=== PATIENT | male | born 1980 | race Caucasian/White ===

== ENCOUNTER 2018-03-09 11:31 | Outpatient (CLI) | payer OTHER, SELFPAY ==
[2018-03-09 12:43] LABS: Abs Immature Grans 0.02 k/cumm (0.0-0.09); Absolute Basophil Count 0.02 k/cumm (0.0-0.2); Absolute Eosinophil Count 0.11 k/cumm (0.0-0.7); Absolute Lymphocyte Count 1.68 k/cumm (1.2-3.4); Absolute Monocyte Count 0.34 k/cumm (0.11-0.7); Basophils % 0.3; Eosinophils % 1.7; HCT 44.2 % (40.0-50.0); HGB 15.9 g/dL (13.5-17.5); Immature Grans % 0.3; Lymphocytes % 26.4; Mean Corpuscular Hemoglobin 31.1 pg (27.0-33.0); Mean Corpuscular Volume 86.3 fL (80-95); Mean Platelet Volume 11.6 fL (8.0-11.0); Monocytes % 5.3; Platelet Count 171 x1000/uL (130-400); RBC 5.12 m/cumm (4.50-6.00); RBC Distribution Width 12.8 % (11.8-14.1); White Blood Cell Count 6.37 k/cumm (4.4-10.8)
[2018-03-09 12:53] LABS: Prothrombin Time 9.7 sec (9.3-11.0)
[2018-03-09 13:02] LABS: ALT 120 U/L (12-78); AST 46 U/L (15-37); Alkaline Phosphatase 75 U/L (46-116); Anion Gap 7.2 mmol/L (3-11); BUN 21 mg/dL (7-18); Bilirubin, Total 0.4 mg/dL (0.2-1.0); CO2 29.8 mmol/L (21.0-32.0); CREATININE 0.99 mg/dL (0.70-1.30); Calcium 9.2 mg/dL (8.5-10.1); Chloride 106 mmol/L (98-107); Glucose 82 mg/dL (70-100); Potassium 4.9 mmol/L (3.5-5.1); Sodium 143 mmol/L (136-145); Total Protein 7.1 g/dL (6.4-8.2)
[2018-03-10 10:49] LABS: HIV-1/2 Ag & Ab Screen Negative (NEGAT)
[2018-03-11 17:54] LABS: HCV Genotype 3 (Undetected)
== END 2018-03-09 11:51 ==
PROVIDERS: PCP Family Medicine; Visit Provider Nurse Practitioner Adult Health
DX: B18.2 Chronic viral hepatitis C (principal); Z11.4 Encounter for screening for human immunodeficiency virus [HIV]
CPT/HCPCS: 36415; 80053; 87389; 87535; 85025; 85610; 87521; 87522

== ENCOUNTER 2021-06-25 09:46 | Emergency (ER) | payer MEDICAID, SELFPAY ==
[2021-06-25] VITALS (16 sets, daily range): BP systolic 126–141; BP diastolic 72–99; PULSE 72–93; RESP 11–33; TEMP 36.5–37; O2SAT 97–98
--- NOTE | 2021-06-25 09:45 | RT.EKG_ITS ---
APPROVED REPORT Exam: Resting ECG Reason for Exam: OD Patient Location: E HR:86 bpm ECG Measurements Heart Rate 86 AXIS MO 145 P 27 QRSd 103 QRS -42 QT 419 T 22 QTc 502 Conclusion Sinus rhythm...normal P axis, V-rate 60- 99 Left anterior fascicular block...axis(240,-40), init forces inf Consider anterior infarct...Q >30mS in V2-V5 Prolonged QT interval...QTc >500mS. Sinus. No STEMI. I have reviewed and interpreted ECG and agree with software generated interpretation.
--- NOTE | 2021-06-25 09:56 | ED.GENADUL_ITS ---
Discharge Plan Disposition Patient Disposition: AGAINST MEDICAL ADVICE Condition: Stable Discharge Details Clinical Impression: Narcotic overdose, Hypoxia, Elevated troponin Primary Care Provider: Unknown,Unknown ED Provider: Lacey Davila Home Meds and New Rx's Prescriptions: Continued cephalexin [Keflex] 500 MG capsule 500 mg PO Q6H PRN Qty: 56 Cane Qty: 1 0RF ibuprofen 800 MG tablet 800 mg PO TID diclofenac sodium 75 MG tablet,delayed release (DR/EC) 75 mg PO BID Qty: 60 hydromorphone 2 MG tablet 2 mg PO Q6H PRN Qty: 15 Rx Instructions: this is a 10 day supply gabapentin 300 MG capsule 100 mg PO TID Qty: 90 Label Comments: states he never filled rx due to cost meloxicam 15 MG tablet 15 mg PO DAILY Qty: 30 3RF acetaminophen [Mapap Extra Strength] 500 MG tablet 1,000 mg PO TID Qty: 180 3RF clindamycin HCl 150 MG capsule 450 mg PO QID Qty: 120 0RF omeprazole 40 mg capsule,delayed release(DR/EC) Label Comments: TAKE 1 CAPSULE BY MOUTH EVERY DAY Discharge Instructions Instructions: Narcotic Safety (ED), Adult Overdose (ED) Additional Instructions: You are leaving the hospital AGAINST MEDICAL ADVICE. It has been suspected that you overdosed on an opiate. The effects of an opiate such as fentanyl are long- lasting. Narcan can wear off which can lead to a decrease in your breathing and possibly . Your blood work also showed evidence that may be indicative of damage to your heart muscle. It is recommended that you stay in the hospital for continued monitoring and repeat blood work. Drink plenty of fluids and get plenty of rest. Follow-up with your primary care doctor in 1 week. Return to the emergency department with any worsening or new concerning sy mptoms. Discharge Data Discharge Date/Time-TO BE ENTERED AT DEPARTURE: 06/25/21 11:51 Discharge Physician: Lacey Davila Medical Decision Making [id number] --- 41-year-old male with a history of polysubstance abuse presents as a suspected opiate overdose per EMS. Oxygen saturation was reported to be 25% on room air upon EMS arrival, after given to Narcan, patient awake and alert with oxygen saturation mid 90s on room air. Patient arrived to the ED awake and alert, oxygen saturation 97% on room air. Remainder vitals within normal limits. Patient denies any acute complaints other than cramp in his left thigh. Thigh appears normal to inspection without trauma, cellulitis or rash. EKG on arrival noted a rate of 86, sinus, left anterior fascicular block, questionable minimal ST elevation in V3 but no official criteria for STEMI. Considering presentation, will obtain screening labs, chest x-ray and continue telemetry monitoring. 1030 --- nursing unable to obtain IV. Laboratory staff obtained labs. 1130 --- patient is stating he would like to leave. Risks of and disability due to missed or incomplete diagnoses explained. Discussed with patient that his initial hypoxia and slightly abnormal EKG, would recommend continued monitoring. Patient is declining to stay. He demonstrates capacity to make decisions. While signing AMA paperwork, his labs resulted and noted a troponin of 93. Again discussed with patient and recommended that he stay for continued telemetry monitoring, at minimum delta troponin and repeat EKG and he is refusing. Patient placed on care management list to arrange for a follow-up appointment with a primary care doctor to establish care. Usual and customary return precautions given prior to leaving. Medical Records Medical records reviewed: Yes I reviewed the patient's medical records. Imaging Data Radiologic Study: Radiologist's impression: XR PORTABLE CHEST AP CLINICAL HISTORY: ? overdose, hypoxic, r/o acute disease. ? TECHNIQUE:? 2D digital imaging was performed. COMPARISON:? CR CHEST 2 VIEWS PA,LAT from 04/26/2015 FINDINGS: Single AP portable view. Heart size is upper normal.? The mediastinum is not widened. Lungs are clear.? No infiltrates nor obvious pleural effusions. IMPRESSION: No acute pulmonary findings on this single AP portable view of the chest. Lab Data Lab results reviewed: Yes I reviewed the patient's lab results. Labs: Laboratory Tests Range/Units 06/25/21 06/25/21 06/25/21 10:01 11:25 11:25 WBC (4.4-10.8) 10^3/uL 16.40 H RBC (4.36-5.78) 10^6/uL 5.54 Hgb (13.5-17.5) g/dL 16.1 Hct (40.0-50.0) % 48.4 MCV (80-95) fL 87 MCH (27.0-33.0) pg 29.1 MCHC (32.0-36.0) % 33.3 RDW (11.8-14.1) % 12.0 Plt Count (130-400) 10^3/uL 202 MPV (8.0-11.0) fL 11.8 H Immature Gran % 0.5 Neutrophils % 89.6 Lymphocytes % 4.6 Monocytes % 5.0 Eosinophils % 0.1 Basophils % 0.2 Nucleated RBC % (0.0-0.3) % 0.0 Absolute Neutrophils (1.2-6.7) 10^3/uL 14.69 H Absolute Lymphocytes (1.2-3.4) 10^3/uL 0.75 L Absolute Monocytes (0.1-0.8) 10^3/uL 0.82 H Absolute Eosinophils (0.0-0.7) 10^3/uL 0.02 Absolute Basophils (0.0-0.2) 10^3/uL 0.03 Sodium (136-145) mmol/L 135 L Potassium (3.5-5.1) mmol/L 4.5 Chloride (98-107) mmol/L 100 Carbon Dioxide (21.0-32.0) mmol/L 26.3 Anion Gap (3-11) mmol/L 8.7 BUN (7-18) mg/dL 27 H Creatinine (0.70-1.30) mg/dL 1.2 Estimated GFR/1.73 m2 (mL/min/1.73m2) >= 60.00 Glucose (74-106) mg/dL 81 Calcium (8.5-10.1) mg/dL 8.7 Magnesium (1.8-2.4) mg/dL 2.5 H Total Bilirubin (0.2-1.0) mg/dL 0.6 AST (15-37) U/L 27 ALT (16-63) U/L 27 Alkaline Phosphatase (46-116) U/L 93 Troponin I (<or=60) ng/L 93 H* Total Protein (6.4-8.2) g/dL 7.5 Albumin (3.4-5.0) g/dL 4.1 COVID-19 Source Nasopharynx SARS-CoV-2 (PCR) (Negative) Negative Influenza Type A (PCR) (Negative) Negative Influenza Type B (PCR) (Negative) Negative RSV (PCR) (Negative) Negative ECG Data Attestation: I personally reviewed and interpreted this ECG (s) as follows: Interpretation: Rate of 86, sinus, left anterior fascicular block. Questionable upsloping of ST segment in V3 but no STEMI. T wave inversion in lead III. No old EKG to compare. HPI General Mode of arrival: EMS . Date/Time Provider Initiated Documentation: 06/25/21 10:03 . Limitations to Documentation: no limitations . Information obtained by: patient . HPI Narrative: Patient is a 41-year-old male with history of polysubstance abuse presented as a possible overdose. EMS reported that patient's grandmother called EMS for patient noted to be unresponsive and writhing on the ground. Upon EMS arrival, patient was unresponsive and breathing but with a normal pulse. EMS reports his oxygen saturation was 25% on room air and increased to 94% on room air. Patient was given Narcan x2 per EMS with response. Patient states that he was incarcerated for 5 years but has been home for the past 3 months. He states he smoked crack last night and found to blue bags today which she scraped the inside of and snorted or smoked. He states he does not remember anything until EMS was standing over him at home. Patient denies any acute complaints. Related Data Home Medications Medication Instructions Recorded Confirmed acetaminophen 500 mg tablet (Mapap 1,000 mg PO TID ##180 09/25/15 10/08/16 Extra Strength) meloxicam 15 mg tablet 15 mg PO DAILY #30 tabs 09/25/15 10/08/16 cephalexin 500 mg capsule (Keflex) 500 mg PO Q6H PRN #56 tab-caps 10/03/15 diclofenac sodium 75 mg 75 mg PO BID #60 tab-caps 05/28/16 tablet,delayed release ibuprofen 800 mg tablet 800 mg PO TID 05/28/16 10/08/16 hydromorphone 2 mg tablet 2 mg PO Q6H PRN #15 tab-caps 08/04/16 gabapentin 300 mg capsule 100 mg PO TID #90 tabs 08/13/16 clindamycin HCl 150 mg capsule 450 mg PO QID #120 caps 10/08/16 omeprazole 40 mg capsule,delayed cap 06/25/21 release Previous Rx's Medication Instructions Recorded acetaminophen 500 mg tablet (Mapap 1,000 mg PO TID ##180 09/25/15 Extra Strength) meloxicam 15 mg tablet 15 mg PO DAILY #30 tabs 09/25/15 clindamycin HCl 150 mg capsule 450 mg PO QID #120 caps 10/08/16 Allergies Allergy/AdvReac Type Severity Reaction Status Date / Time No Known Allergies Allergy Unverified 10/08/16 17:41 General Stated Complaint: OD/Poison BARNEY: 2 Review of Systems All systems reviewed & are unremarkable except as noted in HPI and below Constitutional Constitutional: Denies chills, Denies excessive sweating, Denies fatigue, Denies fever(s), Denies weakness and Denies weight loss Eyes Eyes: Reports system reviewed and no additional complaints, except as documented and Denies blurry vision ENT Ears, Nose, Mouth, and Throat: Denies vertigo, Denies dizziness, Denies otalgia, Denies nasal congestion, Denies sore throat and Denies throat swelling Cardiovascular Cardiovascular: Denies chest pain, Denies syncope, Denies rapid heart rate and Denies dyspnea Respiratory Respiratory: Denies chest congestion, Denies cough, Denies pain on inspiration and Denies dyspnea Gastrointestinal Gastrointestinal: Denies abdominal pain, Denies diarrhea and Denies vomiting Genitourinary Genitourinary: Denies hematuria, Denies dysuria and Denies flank pain Musculoskeletal Musculoskeletal: Denies back pain and Denies joint swelling Integumentary/Breasts Skin/Breast: Denies lesions and Denies rash Neurologic Neurologic: Denies behavioral changes, Denies confusion, Denies vertigo, Denies dizziness, Denies syncope, Denies localized weakness and Denies weakness Psychiatric Psychiatric: Denies behavioral changes, Denies confusion and Denies depression Endocrine Endocrine: Denies excessive sweating and Denies fatigue Hematologic/Lymphatic Hematologic/Lymphatic: Denies easy bruising and Denies lymphadenopathy Allergic/Immunologic Allergic/Immunologic: Denies throat swelling PFSH All Active Problems (Updated 06/25/21 @ 11:49 by Lacey Davila DO) Narcotic overdose (Acute) Hypoxia (Acute) Elevated troponin (Acute) Septic arthritis of knee, left (Acute) Medical History (Updated 06/25/21 @ 11:49 by Lacey Davila DO) No significant past medical history Surgical History Debridement of left knee (03/22/15) Dr. Rivero Social History Smoking/Tobacco Use Status: Current every day Tobacco Type: cigarettes Smoking risk assessment performed?: Yes Alcohol Intake: former Drug use: Occasionally Substance use type: crack/cocaine and opiates Do you feel safe at home: Yes Do you feel safe in your relationship?: Yes Exam Const General: cooperative, no acute distress and disheveled Orientation: alert, awake and oriented x3 HENMT Head: normal to inspection Ears: hearing grossly normal bilaterally and external ears normal General nose exam: external nose normal Face and sinus: normal facial exam Mouth: oral mucosae normal Throat: posterior oropharynx normal Eyes General: appearance normal, both eyes and all related structures Eyelids: eyelids normal Pupils: PERRL EOM: EOM intact bilaterally Neck Neck: normal visual inspection Lymphatic: no lymphadenopathy noted Chest Chest: normal inspection of the chest Resp Effort & Inspection: normal respiratory effort and able to speak in complete sentences Auscultation: clear to auscultation bilaterally Cardio Rate: regular rate Rhythm: regular rhythm GI Inspection: normal to inspection Palpation: soft, not firm, no guarding, no hepatosplenomegaly, no masses and nontender Auscultation: normal bowel sounds Back/Spine/Pelvis Back: no CVA tenderness Skin General skin exam: no rashes or lesions noted Neuro General: patient alert and patient awake Cognition: normal cognition Speech: speech normal Gait: normal gait Motor: muscle tone normal throughout Sensory Exam: no sensory deficits noted Extrem General: normal to inspection, full ROM and capillary refill normal Psych Appearance: grossly normal Mental Status: mental status grossly normal Speech and Movement: speech and movement normal Affect: normal affect Thought Process: normal Course Vital Signs Vital signs: Vital Signs Temperature 97.7 F 06/25/21 09:47 Pulse 93 H 06/25/21 09:47 Respiratory Rate 20 06/25/21 09:47 Blood Pressure 141/99 H 06/25/21 09:47 Pulse Oximetry 97 06/25/21 09:47 Temperature 97.7 F 06/25/21 09:47 Temperature Source Oral 06/25/21 09:47 Pulse 93 H 06/25/21 09:47 Respiratory Rate 20 06/25/21 09:47 Blood Pressure 141/99 H 06/25/21 09:47 Blood Pressure Position Supine 06/25/21 09:47 Pulse Oximetry 97 06/25/21 09:47 Oxygen Delivery Method Room Air 06/25/21 09:47 Oxygen Flow Rate 0 06/25/21 09:47 Pain Level 1 06/25/21 09:47
[2021-06-25 10:58] LABS: COVID-19 PCR Negative (Negative); Influenza A PCR Negative (Negative); Influenza B PCR Negative (Negative); RSV PCR Negative (Negative)
[2021-06-25 11:05] LABS: Source Nasopharynx
--- NOTE | 2021-06-25 11:12 | DI.RAD_ITS ---
Exam(s) XR PORTABLE CHEST AP EXAM: XR PORTABLE CHEST AP CLINICAL HISTORY: overdose, hypoxic, r/o acute disease. TECHNIQUE: 2D digital imaging was performed. COMPARISON: CR CHEST 2 VIEWS PA,LAT from 04/26/2015 FINDINGS: Single AP portable view. Heart size is upper normal. The mediastinum is not widened. Lungs are clear. No infiltrates nor obvious pleural effusions. IMPRESSION: No acute pulmonary findings on this single AP portable view of the chest. DATA REPOSITORY: RADIATION DOSE DELIVERED: All CT scans at this facility use at least one of these dose optimization techniques: automated exposure control; mA and/or kV adjustment per patient size (includes targeted e xams where dose is matched to clinical indication); or iterative reconstruction.
[2021-06-25 11:42] LABS: Abs Immature Grans 0.08 10^3/uL (0.0-0.06); Absolute Basophil Count 0.03 10^3/uL (0.0-0.2); Absolute Eosinophil Count 0.02 10^3/uL (0.0-0.7); Absolute Lymphocyte Count 0.75 10^3/uL (1.2-3.4); Absolute Monocyte Count 0.82 10^3/uL (0.1-0.8); Absolute Neutrophil Count 14.69 10^3/uL (1.2-6.7); Basophils % 0.2; Eosinophils % 0.1; HCT 48.4 % (40.0-50.0); HGB 16.1 g/dL (13.5-17.5); Immature Grans % 0.5; Lymphocytes % 4.6; MCH 29.1 pg (27.0-33.0); MCHC 33.3 % (32.0-36.0); MCV 87 fL (80-95); MPV 11.8 fL (8.0-11.0); Neutrophils % 89.6; Platelet Count 202 10^3/uL (130-400); RBC 5.54 10^6/uL (4.36-5.78); RDW-SD 38.5 fL
[2021-06-25 11:46] LABS: ALT 27 U/L (16-63); AST 27 U/L (15-37); Albumin 4.1 g/dL (3.4-5.0); Alkaline Phosphatase 93 U/L (46-116); Anion Gap 8.7 mmol/L (3-11); BUN 27 mg/dL (7-18); Bilirubin, Total 0.6 mg/dL (0.2-1.0); CO2 26.3 mmol/L (21.0-32.0); CREATININE 1.2 mg/dL (0.70-1.30); Calcium 8.7 mg/dL (8.5-10.1); Chloride 100 mmol/L (98-107); Glucose 81 mg/dL (74-106); Magnesium 2.5 mg/dL (1.8-2.4); Potassium 4.5 mmol/L (3.5-5.1); Sodium 135 mmol/L (136-145); Total Protein 7.5 g/dL (6.4-8.2)
[2021-06-25 11:47] LABS: Troponin I 93 ng/L (<or=60)
--- NOTE | 2021-06-25 11:55 | NUR.NOTE ---
Nursing Note: Unable to obtain iv access on pt, lab [facility] bloodwork and sent. Dr. Davila aware. Pt requesting to leave AMA - Dr. Davila in room to speak with pt, he verbalizes his understanding of the risks of leaving. AMA form signed. Pt escorted out to waiting room.
--- NOTE | 2021-06-25 11:56 | NUR.NOTE ---
Nursing Note: Referral given to Care Management needs PCP, OD, elevated troponin, establish care, within 1 week. Blanca Cadena
--- NOTE | 2021-06-26 11:45 | CMACTNOTE_ITS ---
- If Service Date Differs Date of service: 06/26/21 Time of Service: 11:45 Care Management Activity Note Sina is seen in the ED for narcotic overdose, hypoxia and elevated troponin. At the request of ED provider, JOVITA coordinates a referral to IMANI Bergman, of [facility], on-call provider, to assist Sina in obtaining a follow up appointment and in establishing care with a PCP. He has Medicaid for iinsurance.
== END 2021-06-25 11:51 | disposition left against medical advice (07) ==
LOC: ER 12:03
PROVIDERS: Emergency Provider Physician Assistant
DX: T40.601A Poisoning by unspecified narcotics, accidental (unintentional), initial encounter (principal); R40.4 Transient alteration of awareness; R09.02 Hypoxemia; R79.89 Other specified abnormal findings of blood chemistry
CPT/HCPCS: 36415; 80053; 87637; 93005; 99284; 71045; 83735; 84484; 85025; 93010

== ENCOUNTER 2021-11-24 19:51 | Emergency (ER) | payer MEDICAID, SELFPAY ==
[2021-11-24 19:58] VITALS: BP 156/97; PULSE 100; RESP 16; TEMP 35.7; O2SAT 99
--- OUTSIDE RECORDS SUMMARY | 2021-11-24 20:00 | XMS_ITS ---
:1980 External Reference #:[id number] Author Care Team Providers Name Role Phone Michele, Yu Primary Care Provider Unavailable Allergies Code Code System Name Reaction Severity Status Onset NKDA ? Medications Name Status Start Date Stop Date ? ? buprenorphine 8 mg-naloxone 2 mg sublingual tablet Active ? Not available PLACE TWO TABLETS UNDER THE TONGUE EVERY DAY buprenorphine HCl 8 mg sublingual tablet Completed ? 02/19/[address]21 Place 2 tablets every day by sublingual route for 7 days. omeprazole 40 mg capsule,delayed release Active ? Not available TAKE 1 CAPSULE BY MOUTH EVERY DAY Suboxone 8 mg-2 mg sublingual film Active ? Not available PLACE ONE FILM UNDER THE TONGUE EVERY DAY FOR 7 DAYS Problems Name Status Onset Date Source ? Opioid Dependence Active 02/12/2021 ? Procedures Date Name Performed by ? ? Operative Procedure on Knee Information not available Results Lab Results Date Name Specimen Result Interpretation Description Value Range Status Address ? 04/08/2021 Drug UR ? Amphetamines negative NG/mL 1,000 Final [facility] Screen, NG/mL Health: Urine [address], [place] ? ? UR ? Benzodiazapines negative NG/mL 200 Final [facility] NG/mL Health: [address], [place] ? ? UR ? Buprenorphine positive NG/mL 5 F inal [facility] NG/mL Health: [address], [place] ? ? UR ? Cocaine negative NG/mL 150 Final [facility] Metabolite NG/mL Health : [address], [place] ? ? UR ? Opiates negative NG/mL 300 Final [facility] NG/mL Health: [address], [place] ? ? UR ? Oxycodone negative NG/mL 300 Final [facility] NG/mL Health: [address], [place] ? ? UR ? Fentanyl negative NG/mL 2 Final [facility] NG/mL Health: [address], [place] ? ? UR ? Ethyl Alcohol negative mg/dL 10 F inal [facility] mg/dL Health: [address], [place] ? ? UR ? Methadone negative NG/mL 300 Final [facility] Metabolite NG/mL Health : [address] ? ? UR ? Cannabinoids negative NG/mL 50 Fi nal [facility] (THC) NG/mL Health: [address] ? ? UR ? Urine Creatinine 58.8 mg/dL >20 Fi nal [facility] mg/dL Health: [address] ? ? UR ? Urine pH 8.00 4.5-9. Final [facility] 0 Health: [address] ? ? UR ? Specific [place] 1.009 1.003- Final [facility] 1.035 Health: [address] 03/18/2021 Drug UR ? Amphetamines negative NG/mL 1,000 Final [facility] Screen, NG/mL Health: Urine [address] ? ? UR ? Benzodiazapines negative NG/mL 200 Final [facility] NG/mL Health: [address] ? ? UR ? Buprenorphine positive NG/mL 5 F inal [facility] NG/mL Health: [address] ? ? UR ? Cocaine negative NG/mL 150 Final [facility] Metabolite NG/mL Health : [address] ? ? UR ? Opiates negative NG/mL 300 Final [facility] NG/mL Health: [address] ? ? UR ? Oxycodone negative NG/mL 300 Final [facility] NG/mL Health: [address] ? ? UR ? Fentanyl negative NG/mL 2 Final [facility] NG/mL Health: [address] ? ? UR ABNORMAL Ethyl Alcohol positive mg/dL 10 Final [facility] mg/dL Health: [address], [place] ? ? UR ? Methadone negative NG/mL 300 Final [facility] Metabolite NG/mL Health : [address] ? ? UR ? Urine Creatinine 68.3 mg/dL >20 Fi nal [facility] mg/dL Health: [address] ? ? UR ? Urine pH 5.40 4.5-9. Final [facility] 0 Health: [address] ? ? UR ? Specific [place] 1.016 1.003- Final [facility] 1.035 Health: [address], [place] 03/18/2021 Drug UR High Buprenorphine olr(>2000) 10 F inal [facility] Confirma NG/mL NG/mL Health: tion, [address], [place] ? ? UR ? Norbuprenorphine 13.8 NG/mL 10 Fi nal [facility] NG/mL Health: [address], [place] ? ? UR ? Legend abbreviations ? Final [facility] Health: [address], [place] ? ? UR ? Billing Only billing only ? Ritu l [facility] ([id number]) Health: [address] [place] 03/11/2021 Drug UR ? Amphetamines negative NG/mL 1,000 Final [facility] Screen, NG/mL Health: Urine [address], [place] ? ? UR ? Benzodiazapines negative NG/mL 200 Final [facility] NG/mL Health: [address], [place] ? ? UR ? Buprenorphine positive NG/mL 5 F inal [facility] NG/mL Health: [address], [place] ? ? UR ? Cocaine negative NG/mL 150 Final [facility] Metabolite NG/mL Health : [address], [place] ? ? UR ? Opiates negative NG/mL 300 Final [facility] NG/mL Health: [address], [place] ? ? UR ? Oxycodone negative NG/mL 300 Final [facility] NG/mL Health: [address], [place] ? ? UR ? Fentanyl negative NG/mL 2 Final [facility] NG/mL Health: [address], [place] ? ? UR ? Ethyl Alcohol negative mg/dL 10 F inal [facility] mg/dL Health: [address], [place] ? ? UR ? Methadone negative NG/mL 300 Final [facility] Metabolite NG/mL Health : [address], [place] ? ? UR ? Urine Creatinine 141.8 mg/dL >20 F inal [facility] mg/dL Health: [address], [place] ? ? UR ? Urine pH 5.80 4.5-9. Final [facility] 0 Health: [address], [place] ? ? UR ? Specific [place] 1.012 1.003- Final [facility] 1.035 Health: [address] 02/18/2021 Drug UR ABNORMAL Amphetamines positive NG/mL 1,0 00 Final [facility] Screen, NG/mL Health: Urine [address] ? ? UR ? Benzodiazapines negative NG/mL 200 Final [facility] NG/mL Health: [address], [place] ? ? UR ? Buprenorphine positive NG/mL 5 F inal [facility] NG/mL Health: [address], [place] ? ? UR ABNORMAL Cocaine positive NG/mL 150 Final [facility] Metabolite NG/mL Health : [address], [place] ? ? UR ? Opiates negative NG/mL 300 Final [facility] NG/mL Health: [address], [place] ? ? UR ? Oxycodone negative NG/mL 300 Final [facility] NG/mL Health: [address] ? ? UR ABNORMAL Fentanyl positive NG/mL 2 Ritu l [facility] NG/mL Health: [address], [place] ? ? UR ? Ethyl Alcohol negative mg/dL 10 F inal [facility] mg/dL Health: [address], [place] ? ? UR ? Methadone negative NG/mL 300 Final [facility] Metabolite NG/mL Health : [address], [place] ? ? UR ? Urine Creatinine 200.6 mg/dL >20 F inal [facility] mg/dL Health: [address] ? ? UR ? Urine pH 6.40 4.5-9. Final [facility] 0 Health: [address], [place] ? ? UR ? Specific [place] 1.016 1.003- Final [facility] 1.035 Health: [address] 02/18/2021 Drug UR ? Buprenorphine 66.7 NG/mL 20 F inal [facility] Confirma NG/mL Health: tion, 12 [address] ? ? UR ? Norbuprenorphine 133.4 NG/mL 50 F inal [facility] NG/mL Health: [address], [place] ? ? UR ? 6-Acetylmorphine negative NG/mL 10 Final [facility] NG/mL Health: [address], [place] ? ? UR ? Codeine negative NG/mL 50 Final [facility] NG/mL Health: [address], [place] ? ? UR ? Hydrocodone negative NG/mL 50 Fin al [facility] NG/mL Health: [address], [place] ? ? UR ? Hydromorphone negative NG/mL 50 F inal [facility] NG/mL Health: [address], [place] ? ? UR ? Morphine negative NG/mL 50 Final [facility] NG/mL Health: [address], [place] ? ? UR ? Norhydrocodone negative NG/mL 100 Final [facility] NG/mL Health: [address], [place] ? ? UR ? Noroxycodone negative NG/mL 50 Fi nal [facility] NG/mL Health: [address], [place] ? ? UR ? Oxycodone negative NG/mL 25 Final [facility] NG/mL Health: [address], [place] ? ? UR ? Oxymorphone negative NG/mL 100 Fin al [facility] NG/mL Health: [address], [place] ? ? UR ? Fentanyl negative NG/mL 20 Final [facility] NG/mL Health: [address], [place] ? ? UR High Norfentanyl 147.8 NG/mL 20 Final [facility] NG/mL Health: [address], [place] ? ? UR High Benzoylecgonine olr(>2000) 100 Fin al [facility] NG/mL NG/mL Health: [address], [place] ? ? UR ? Amphetamine negative NG/mL 250 Fin al [facility] NG/mL Health: [address], [place] ? ? UR High Methamphetamine 1099.8 NG/mL 250 F inal [facility] NG/mL Health: [address], [place] ? ? UR ? Mda negative NG/mL 250 Final [place] NG/mL Health: [address], [place] ? ? UR ? Alpha-hydroxyalp negative NG/mL 25 Final [facility] razolam NG/mL Health: [address], [place] ? ? UR ? 7-Aminoclonazepa negative NG/mL 40 Final [facility] m NG/mL Health: [address], [place] ? ? UR ? Diazepam negative NG/mL 50 Final [facility] NG/mL Health: [address], [place] ? ? UR ? Lorazepam negative NG/mL 50 Final [facility] NG/mL Health: [address], [place] ? ? UR ? Nordiazepam negative NG/mL 50 Fin al [facility] NG/mL Health: [address], [place] ? ? UR ? Temazepam negative NG/mL 50 Final [facility] NG/mL Health: [address], [place] ? ? UR ? Methadone negative NG/mL 250 Final [facility] NG/mL Health: [address], [place] ? ? UR ? Eddp negative NG/mL 100 Final [place] NG/mL Health: [address], [place] ? ? UR ? Normeperidine negative NG/mL 100 F inal [facility] NG/mL Health: [address], [place] ? ? UR ? Tramadol negative NG/mL 100 Final [facility] NG/mL Health: [address], [place] ? ? UR ? Legend abbreviations ? Final [place] Health: [address] 02/11/2021 Drug UR ? Amphetamines negative NG/mL 1,000 Final [facility] Screen, NG/mL Health: Urine [address], [place] ? ? UR ? Benzodiazapines negative NG/mL 200 Final [facility] NG/mL Health: [address], [place] ? ? UR ? Buprenorphine positive NG/mL 5 F inal [facility] NG/mL Health: [address], [place] ? ? UR ? Cocaine negative NG/mL 150 Final [facility] Metabolite NG/mL Health : [address], [place] ? ? UR ? Opiates negative NG/mL 300 Final [facility] NG/mL Health: [address], [place] ? ? UR ? Oxycodone negative NG/mL 300 Final [facility] NG/mL Health: [address], [place] ? ? UR ? Fentanyl negative NG/mL 2 Final [facility] NG/mL Health: [address], [place] ? ? UR ? Ethyl Alcohol negative mg/dL 10 F inal [facility] mg/dL Health: [address] ? ? UR ? Methadone negative NG/mL 300 Final [facility] Metabolite NG/mL Health : [address] ? ? UR ? Urine Creatinine 40.8 mg/dL >20 Fi nal [facility] mg/dL Health: [address] ? ? UR ? Urine pH 5.10 4.5-9. Final [facility] 0 Health: [address] ? ? UR ? Specific [place] 1.010 1.003- Final [facility] 1.035 Health: [address] Past Encounters 04/08/2021 Opioid Dependence Yu Michele, FOCUS PULLER: [address] [place] [phone], Ph. 03/18/2021 Opioid Dependence Yu Michele, FOCUS PULLER: [address] [place] [phone], Ph. 03/11/2021 Opioid Dependence Yu Michele, FOCUS PULLER: [address] [place] [phone], Ph. 02/18/2021 Opioid Dependence Yu Michele, FOCUS PULLER: [address] [place] [phone], Ph. 02/12/2021 Opioid Dependence Yu Michele, FOCUS PULLER: [address] [place] [address] [address] [phone], Ph. Social History None recorded. Vaccine List None recorded. Plan of Care Patient Instructions As part of your individualized treatmen t plan and program requirement, you will need to bring your correct prescription bottle and all used and unused medication and counseling verification to each appointment; > Agree to participate in counseling and bring counseling verification to each appointment; > Agree to present for random visits; > Agree to not falsify your urine specim ens. As part of your individualized treatmen t plan and program requirement, you will need to bring your correct prescription bottle and all used and unused medication and counseling verification to each appointment; > Agree to participate in counseling and bring counseling verification to each appointment; > Agree to present for random visits; > Agree to not falsify your urine specim ens. Abstain from opiates for 24 hours unles s directed by provider; > If already taking buprenorphine, do no t take a dose the day of the induction until you are in the office with your provider; > Comfort medications were recommended. If accepted, please take as prescribed to support your ability to abstain from opiates until your buprenorphine induction; > Keep your buprenorphine RX package ken sed until you are seen by your provider for induction unless otherwise directed; If you have problems abstaining from op iates, please call the office. Reminders Provider Appointments None recorded. ? ? Lab None recorded. ? ? Referral None recorded. ? ? Procedures None recorded. ? ? Surgeries None recorded. ? ? Imaging None recorded. ? ? Vitals 04/08/2021 11:00AM MAT - Twice Weekly 15 Weight 201 lbs 02/18/2021 01:30PM MAT - Weekly 15 Blood Pressure 124/67 mm[Hg]
--- OUTSIDE RECORDS SUMMARY | 2021-11-24 20:00 | XMS_ITS | Encounter Summary ---
:1980 [place] [address] Care Team Providers Name Role Phone Jesus Grover MD, Mark Primary Care Provider Encounter Details Date Type Department Care Team Description 03/26/2015 Hospital Encounter [facility] [place] [facility] [place] [facility] [place] [address] ORTHOPAEDIC SURGERY [phone] [place], [place] [address] (Wo rk) Social History Tobacco Use Types Packs/Day Years Used Date Never Assessed Sex Assigned at Date Recorded Not on file documented as of this encounter Plan of Treatment Not on filedocumented as of this encounter Procedures Procedure Name Priority Date/Time Associated Diagnosis Comme nts FILM LIBRARY Routine 03/26/2015 12:00 AM Pain Results for this STORAGE ONLY MR EST procedure ar e in [facility] the results section. documented in this encounter Results Film Library- Storage Only MR Knee (03/26/2015 12:00 AM EST) Specimen (Source) Anatomical Location Collection Method / Collectio n Time Received Time / Laterality Volume Narrative ÁLVARO - 08/19/2016 12:42 AM EDT This exam is for storage only and is aut o-finalizing. Chaz Myers MD IMG FILM LIBRARY ORDERABLES Performing Organization Address City/State/ZIP Code Phon e Number [place], [place] documented in this encounter Visit Diagnoses Diagnosis Pain Generalized pain documented in this encounter Care Teams Family Member Caretaker Relationship Specialty Start Date End Date Lex Lee MD PCP - General 01/01/[address] [place] [address] [place] [address] documented as of this encounter
--- OUTSIDE RECORDS SUMMARY | 2021-11-24 20:00 | XMS_ITS | Encounter Summary ---
:1980 [place] [address] Care Team Providers Name Role Phone Jesus Grover MD, Mark Primary Care Provider Encounter Details Date Type Department Care Team Description 07/18/2015 Hospital Encounter Radiology Library at [place], Pain [facility] [place] [facility] [place] [address] ORTHOPAEDIC SURGERY [phone] [place], [place] [address] (Wo rk) Social History Tobacco Use Types Packs/Day Years Used Date Never Assessed Sex Assigned at Date Recorded Not on file documented as of this encounter Plan of Treatment Not on filedocumented as of this encounter Procedures Procedure Name Priority Date/Time Associated Diagnosis Comme [facility] FILM LIBRARY Routine 07/18/2015 12:00 AM Pain Results for this STORAGE ONLY DX EDT procedure ar e in KNEE the results section. documented in this encounter Results Film Library- Storage Only DX Knee (07/18/2015 12:00 AM EDT) Specimen (Source) Anatomical Location Collection Method / Collectio n Time Received Time / Laterality Volume Narrative LINDA REA - 08/19/2016 12:39 AM EDT This exam is for storage only and is aut o-finalizing. Chaz Myers MD IMG FILM LIBRARY ORDERABLES Performing Organization Address City/State/ZIP Code Phon e Number RAD [place], [place] documented in this encounter Visit Diagnoses Diagnosis Pain Generalized pain documented in this encounter Care Teams Ground Surveillance Systems Operator Relationship Specialty Start Date End Date Lex Lee MD PCP - General 01/01/[address] [place] [address] [place] [address] documented as of this encounter
--- OUTSIDE RECORDS SUMMARY | 2021-11-24 20:00 | XMS_ITS | Encounter Summary ---
:1980 [place] [address] Care Team Providers Name Role Phone Jesus Grover MD, Mark Primary Care Provider Encounter Details Date Type Department Care Team Description 02/26/2015 Hospital Encounter [facility] [place], [place] [facility] [place] [address] ORTHOPAEDIC SURGERY [phone] [place], [place] [address] (Wo rk) Social History Tobacco Use Types Packs/Day Years Used Date Never Assessed Sex Assigned at Date Recorded Not on file documented as of this encounter Plan of Treatment Not on filedocumented as of this encounter Procedures Procedure Name Priority Date/Time Associated Diagnosis Comme nts FILM LIBRARY Routine 02/26/2015 12:00 AM Pain Results for this STORAGE ONLY DX EST procedure ar e in KNEE the results section. documented in this encounter Results Film Library- Storage Only DX Knee (02/26/2015 12:00 AM EST) Specimen (Source) Anatomical Location Collection Method / Collectio n Time Received Time / Laterality Volume Narrative ÁLVARO - 08/19/2016 12:43 AM EDT This exam is for storage only and is aut o-finalizing. Chaz Myers MD IMG FILM LIBRARY ORDERABLES Performing Organization Address City/State/ZIP Code Phon e Number [place], [place] documented in this encounter Visit Diagnoses Diagnosis Pain Generalized pain documented in this encounter Care Teams Supervisor Boiler Repair Relationship Specialty Start Date End Date Lex Lee MD PCP - General 01/01/[address] [place] [address] [place] [address] documented as of this encounter
--- OUTSIDE RECORDS SUMMARY | 2021-11-24 20:00 | XMS_ITS | Clinical Summary ---
:1980 Author Organization [facility] [place] [address] Care Team Providers Name Role Phone Jesus Grover MD, Mark Primary Care Provider Social History Tobacco Use Types Packs/Day Years Used Date Never Assessed Sex Assigned at Date Recorded Not on file Plan of Treatment Health Maintenance Due Date Last Done Comments Covid-19 Vaccine (#1) 1980 HIV screen 06/07/1999 Hepatitis C Screening 06/07/1999 Lipid Screening 06/07/1999 Tdap adult 2000 Tetanus vaccine 2000 Influenza (Flu) vaccine ( - Influenza standard 10/10/2021 series) Insurance Payer Benefit Plan / Subscriber ID Effective Dates Phone Addre ss Type Group CIGNA CIGNA OPEN [id number] 2013-Present [phone] ROBERT X [id number] ACCESS PLUS [place], [place] [id number] Care Teams Template Checker Relationship Specialty Start Date End Date Lex Lee MD PCP - General 01/01/10 [place], [place] [phone]
--- NOTE | 2021-11-24 20:03 | W.ED.GENAD ---
Discharge Plan Disposition Patient Disposition: HOME Condition: Good Discharge Details Clinical Impression: Dental abscess Primary Care Provider: None,None ED Provider: Rigoberto Tee Home Meds and New Rx's Prescriptions: New clindamycin HCl [Cleocin HCl] 150 mg capsule 450 mg PO TID 9 Days Qty: 81 0RF No Action cephalexin [Keflex] 500 MG capsule 500 mg PO Q6H PRN Qty: 56 Cane Qty: 1 0RF ibuprofen 800 MG tablet 800 mg PO TID diclofenac sodium 75 MG tablet,delayed release (DR/EC) 75 mg PO BID Qty: 60 hydromorphone 2 MG tablet 2 mg PO Q6H PRN Qty: 15 Rx Instructions: this is a 10 day supply gabapentin 300 MG capsule 100 mg PO TID Qty: 90 Label Comments: states he never filled rx due to cost meloxicam 15 MG tablet 15 mg PO DAILY Qty: 30 3RF acetaminophen [Mapap Extra Strength] 500 MG tablet 1,000 mg PO TID Qty: 180 3RF clindamycin HCl 150 MG capsule 450 mg PO QID Qty: 120 0RF omeprazole 40 mg capsule,delayed release(DR/EC) Label Comments: TAKE 1 CAPSULE BY MOUTH EVERY DAY Discharge Instructions Instructions: Dental Abscess (ED) Additional Instructions: At this time you have evidence of a dental abscess. As we discussed together it is important to get this drained. You have decided to hold off on the drainage, however it is vitally important that if your symptoms continue or worsen that you need to return immediately to perform the drainage attempt that we discussed. Please take 800 mg of ibuprofen every 6 hours and 1000 mg of Tylenol every 6 hours to help with the inflammation and pain. These are the maximum doses. Please take the antibiotic as directed to help with the infection in your tooth. It has been sent to your pharmacy on file. Take 3 tablets every 8 hours. please use the dental list that we have provided to contact the dentist for prompt follow-up and evaluation for tooth removal. If you notice any worsening of your symptoms, or any new symptoms such as difficulty swallowing, difficulty breathing, vomiting, diarrhea, fever, chills, shortness of breath, chest pain, numbness, weakness, or fainting , please return immediately to the emergency department for reevaluation. Please follow up with your primary care provider as soon as possible for reassessment and reevaluation. As always, it was a pleasure participating in your medical care today. Medical Decision Making 41-year-old male presents today for dental pain and abscess. Patient states that for the last 2 to 3 days he has had swelling and some pus that was draining from his right lower chin and to the area. Pain is made worse with palpation. He denies fever chills or difficulty swallowing. He has not contacted a dentist yet. No other complaints at this time. Exam demonstrates an area of swelling at the periapical space by the right lower canine area. This extends into the chin with swelling and what appears to be an area of mild drainage. Suspect a communicating abscess. No evidence of Ludewig's angina or swelling around the throat or neck. No signs of airway compromise whatsoever. Due to the nature and size of the suspected dental abscess, I highly recommended to the patient that a dental block and drainage be performed. Patient refused. I discussed that this can significantly worsen quickly, and I also discussed the risks of systemic infection, and Ludewig's angina as a potential downstream component, including worsening illness and and lifelong disability. Patient understands this but again refuses dental block and drainage. Patient is requesting antibiotics, and states that if is not better in 1 to 2 days and he will come back in to be rechecked and have the procedure. I made clear to the patient that if it worsens at all he should return immediately for reassessment. Patient will be given clindamycin for treatment. Recommend Tylenol or Motrin. Dental sheet has been given and recommend prompt follow-up with dentist. Discussed red flags which to return. I have extensively reviewed the treatment plan and discharge instructions with the patient. I have addressed all patient concerns at this time. The patient was made aware of what symptoms to monitor for that would warrant a return to the emergency department. Discussed the plan with the patient, they demonstrate verbal understanding and agreement with our assessment and plan at this time. The documentation in this chart was dictated using Pins dictation software. Please excuse any dictation errors. HPI General Date/Time Provider Initiated Documentation: 11/24/21 19:54. HPI Narrative: 41-year-old male presents today for dental pain and abscess. Patient states that for the last 2 to 3 days he has had swelling and some pus that was draining from his right lower chin and to the area. Pain is made worse with palpation. He denies fever chills or difficulty swallowing. He has not contacted a dentist yet. No other complaints at this time. Related Data Home Medications Medication Instructions Recorded Confirmed acetaminophen 500 mg tablet (Mapap 1,000 mg PO TID ##180 09/25/15 10/08/16 Extra Strength) cephalexin 500 mg capsule (Keflex) 500 mg PO Q6H PRN #56 tab-caps 10/03/15 ibuprofen 800 mg tablet 800 mg PO TID 05/28/16 11/24/21 clindamycin HCl 150 mg capsule 450 mg PO QID #120 caps 10/08/16 11/24/21 omeprazole 40 mg capsule,delayed 40 mg PO DAILY 06/25/21 11/24/21 release clindamycin HCl 150 mg capsule 450 mg PO TID 9 days #81 caps 11/24/21 (Cleocin HCl) Previous Rx's Medication Instructions Recorded acetaminophen 500 mg tablet (Mapap 1,000 mg PO TID ##180 09/25/15 Extra Strength) clindamycin HCl 150 mg capsule 450 mg PO QID #120 caps 10/08/16 clindamycin HCl 150 mg capsule 450 mg PO TID 9 days #81 caps 11/24/21 (Cleocin HCl) Allergies Allergy/AdvReac Type Severity Reaction Status Date / Time No Known Allergies Allergy Unverified 11/24/21 20:04 General BARNEY: 2 Review of Systems All systems reviewed & are unremarkable except as noted in HPI and below PFSH All Active Problems Dental abscess (Acute) Septic arthritis of knee, left (Acute) Medical History No significant past medical history Surgical History Debridement of left knee (03/22/15) Dr. Rivero Social History Smoking/Tobacco Use Status: Current every day Tobacco Type: cigarettes Smoking risk assessment performed?: Yes Alcohol Intake: former Drug use: Occasionally Substance use type: crack/cocaine and opiates Do you feel safe at home: Yes Do you feel safe in your relationship?: Yes Exam Narrative Exam Narrative: 1.Const: Well-nourished, Well-developed, appearing stated age 2.Eyes: PERRL, no conjunctival injection, and symmetrical lids. 3.ENT: Atraumatic external nose and ears. Moist MM. Neck: Symmetric, trachea midline, No thyromegaly. Patient demonstrates notable dental carry around the area of his right lower incisor. There appears to be swelling in the periapical space below that extends into the chin with firmness but no fluctuance. There appears to be an area of mild drainage externally by the chin which is likely communicating from where the dental component is. No evidence of swelling in the neck to suggest Ludewig's angina. No evidence of airway compromise. 4.CVS: +S1/S2, No murmurs or gallops. Peripheral pulses 2+ and equal in all extremities. Brisk capillary refill in all extremities. 5.RESP: Unlabored respiratory effort. Clear to auscultation bilaterally. No wheezes rales or rhonchi 6.GI: Soft, Nontender/Nondistended, No hepatosplenomegaly. No guarding or rebound. 7.MSK: Normocephalic/Atraumatic, Extremities w/o deformity or ttp No cyanosis or clubbing, Normal movement of all extremities 8.Skin: Warm, Dry. No rashes or lesions. 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 Sensation grossly intact, no focal neurologic deficits. 10.Psych: (AAO) x3. Appropriate mood and affect
[2021-11-24] MEDS: Clindamycin 150 MG CAP, 12 CAPS/BTL 450 MG PO (20:10)
== END 2021-11-24 20:10 | disposition home or self-care (01) ==
PROVIDERS: Emergency Provider Student in an Organized Health Care Education/Training Program
DX: K04.7 Periapical abscess without sinus (principal); K02.9 Dental caries, unspecified
CPT/HCPCS: 99283; 99284

== ENCOUNTER 2022-01-25 23:50 | Emergency (ER) | payer MEDICAID, SELFPAY ==
[2022-01-26 00:51] VITALS: BP 134/94; PULSE 74; RESP 16; TEMP 36.8; O2SAT 94
--- NOTE | 2022-01-26 00:57 | ED.GENADUL_ITS ---
Discharge Plan Disposition Patient Disposition: Home Condition: Improving Discharge Details Clinical Impression: Odontalgia Primary Care Provider: None,None ED Provider: Provider,Temporary Home Meds and New Rx's Prescriptions: Continued Cane Qty: 1 0RF ibuprofen 800 MG tablet 800 mg PO TID acetaminophen [Mapap Extra Strength] 500 MG tablet 1,000 mg PO TID Qty: 180 3RF omeprazole 40 mg capsule,delayed release(DR/EC) 40 mg PO DAILY Label Comments: TAKE 1 CAPSULE BY MOUTH EVERY DAY clindamycin HCl 150 MG capsule 450 mg PO QID 10 Days Qty: 120 0RF Discontinued cephalexin [Keflex] 500 MG capsule 500 mg PO Q6H PRN Qty: 56 Discharge Instructions Instructions: Toothache (ED) Additional Instructions: Salt water gargles to assist in promoting drainage. May apply warm compress to area. Continue Tylenol and ibuprofen as needed for pain. Take clindamycin as prescribed. Return for any acute concern. Medical Decision Making 41-year-old male with poor dentition, history of recurrent abscesses presents with left mandibular swelling over 2 days time. He has evidence of developing abscess. Not amenable to drainage. Placed on clindamycin. He is stable for discharge to home. HPI General Mode of arrival: ambulatory . Date/Time Provider Initiated Documentation: 01/26/22 00:48 . Limitations to Documentation: no limitations . Information obtained by: patient . History of Present Illness 41 year old M presents to the emergency department with the chief complaint of Left lower jaw swelling, described as mild, moderate and similar to prior episodes, Quality is described as dull and constant, and is localized to the face, mouth and le ft. Patient reports no radiation. Patient started experiencing this day(s) and it has been constant. No relieving factors improve symptom(s), No exacerbating factors reported . Patient notes denies chest pain, cough and fever/chills. Patient did receive the following treatments prior to arrival, other (Tylenol) Related Data Home Medications Medication Instructions Recorded Confirmed acetaminophen 500 mg tablet (Mapap 1,000 mg PO TID ##180 09/25/15 10/08/16 Extra Strength) ibuprofen 800 mg tablet 800 mg PO TID 05/28/16 11/24/21 omeprazole 40 mg capsule,delayed 40 mg PO DAILY 06/25/21 11/24/21 release clindamycin HCl 150 mg capsule 450 mg PO QID 10 days #120 caps 01/26/22 Previous Rx's Medication Instructions Recorded acetaminophen 500 mg tablet (Mapap 1,000 mg PO TID ##180 09/25/15 Extra Strength) clindamycin HCl 150 mg capsule 450 mg PO QID 10 days #120 caps 01/26/22 Allergies Allergy/AdvReac Type Severity Reaction Status Date / Time No Known Allergies Allergy Unverified 11/24/21 20:04 General Stated Complaint: DentalOral BARNEY: 4 Review of Systems Narrative: 6 systems reviewed and otherwise negative PFSH All Active Problems (Updated 01/26/22 @ 00:59 by Jasper Messer MD) Odontalgia (Acute) Septic arthritis of knee, left (Acute) Medical History No significant past medical history Surgical History Debridement of left knee (03/22/15) Dr. Rivero Social History Smoking/Tobacco Use Status: Current every day Tobacco Type: cigarettes Smoking risk assessment performed?: Yes Alcohol Intake: former Drug use: Occasionally Substance use type: marijuana, crack/cocaine and opiates Details: former user Do you feel safe at home: Yes Do you feel safe in your relationship?: Yes Exam Narrative Exam Narrative: GEN: awake, alert, oriented 3. Pleasant, well groomed, interactive. HEAD: Normocephalic, atraumatic ENT: Mucous membranes moist, left mandibular edema, poor dentition throughout, no focal abscess appreciated EYES: PERRL, EOMI NECK: Full ROM, no DONATO, no menigismus CHEST/RESP no respiratory distress Neuro: Grossly normal neurologic exam, conversant, interactive. Psych: Speech fluent, thoughts congruent, affect normal Course Vital Signs Vital signs: Vital Signs Temperature 36.8 C 01/26/22 00:51 Pulse 74 01/26/22 00:51 Respiratory Rate 16 01/26/22 00:51 Blood Pressure 134/94 H 01/26/22 00:51 Pulse Oximetry 94 01/26/22 00:51 Temperature 36.8 C 01/26/22 00:51 Temperature Source Oral 01/26/22 00:51 Pulse 74 01/26/22 00:51 Respiratory Rate 16 01/26/22 00:51 Blood Pressure 134/94 H 01/26/22 00:51 Blood Pressure Position Sitting 01/26/22 00:51 Pulse Oximetry 94 01/26/22 00:51 Oxygen Delivery Method Room Air 01/26/22 00:51 Oxygen Flow Rate 0 01/26/22 00:51 Pain Level 6 01/26/22 00:51
== END 2022-01-26 01:17 | disposition home or self-care (01) ==
PROVIDERS: Emergency Provider Emergency Medicine
DX: K08.89 Other specified disorders of teeth and supporting structures (principal)
CPT/HCPCS: 99282

== ENCOUNTER 2022-03-19 00:05 | Emergency (ER) | payer MEDICAID, SELFPAY ==
[2022-03-19 00:12] VITALS: BP 161/87; PULSE 99; RESP 18; TEMP 36.8; O2SAT 97
--- NOTE | 2022-03-19 00:19 | ED.GENADUL_ITS ---
Discharge Plan Disposition Patient Disposition: Home Condition: Stable Discharge Details Clinical Impression: Infected lesion of skin, Cellulitis Primary Care Provider: None,None ED Provider: Lacey Davila Home Meds and New Rx's Prescriptions: New sulfamethoxazole-trimethoprim [Bactrim DS] 800-160 mg tablet 1 tab PO BID 7 Days Qty: 14 0RF Continued Cane Qty: 1 0RF ibuprofen 800 MG tablet 800 mg PO TID acetaminophen [Mapap Extra Strength] 500 MG tablet 1,000 mg PO TID Qty: 180 3RF omeprazole 40 mg capsule,delayed release(DR/EC) 40 mg PO DAILY Label Comments: TAKE 1 CAPSULE BY MOUTH EVERY DAY clindamycin HCl 150 MG capsule 450 mg PO QID 10 Days Qty: 120 0RF Discharge Instructions Instructions: Cellulitis (ED) Additional Instructions: You appear to be developing superficial skin infections around several skin lesions. It is recommended to apply the topical antibiotic cream Mupirocin to the affected areas twice daily for the next 5 to 7 days. A prescription for the oral antibiotic Bactrim has been sent electronically to your pharmacy to take as directed until finished. Be sure to keep the areas clean and dry and wash with soap and water. You can cover the areas if risk for injury or contamination and at bedtime. Otherwise it is important at times to keep the areas open to air to allow the areas to dry and heal. It is important to rest and elevate your legs as much as possible to decrease leg swelling to improve healing. Follow-up with your primary care doctor in 1 week. Return to the emergency department with any worsening or new concerning symptoms. Discharge Data Discharge Physician: Lacey Davila Medical Decision Making 41-year-old man presents to the ED with concern for multiple skin lesions and possible infection. He denies IVDA or skin popping. Patient has multiple lesions noted to his neck and extremities that appear likely c/w skin picking. There is more significant erythema and edema around lesions noted to the bilateral lower extremities, left greater than right. There is no evidence of abscess. History and presentation does not appear consistent with DVT. Patient advised to avoid picking, scratching and popping the wounds. He is advised to apply warm compresses as needed. We will treat for potential MRSA and cover with mupirocin and Bactrim. He is advised to rest and elevate lower extremities is much as possible. Advised to follow up with the primary care doctor for re-evaluation. Usual and customary return precautions given prior to discharge. Medical Records Medical records reviewed: Yes I reviewed the patient's medical records. HPI General Mode of arrival: ambulatory . Date/Time Provider Initiated Documentation: 03/19/22 00:13 . Limitations to Documentation: no limitations . Information obtained by: patient . HPI Narrative: Patient is a 41-year-old male with a previous history of IV drug use which she currently denies presents with multiple skin lesions which have been worsening and he is concerned about possible infection. Patient denies any known insect bite. Patient states he frequently picks at any scabs or attempts to pop them on his own. Patient denies any IV drug use. Patient denies any known fever. Related Data Home Medications Medication Instructions Recorded Confirmed acetaminophen 500 mg tablet (Mapap 1,000 mg PO TID ##180 09/25/15 10/08/16 Extra Strength) ibuprofen 800 mg tablet 800 mg PO TID 05/28/16 11/24/21 omeprazole 40 mg capsule,delayed 40 mg PO DAILY 06/25/21 11/24/21 release clindamycin HCl 150 mg capsule 450 mg PO QID 10 days #120 caps 01/26/22 sulfamethoxazole 800 1 tab PO BID 7 days #14 tabs 03/19/22 mg-trimethoprim 160 mg tablet (Bactrim DS) Previous Rx's Medication Instructions Recorded acetaminophen 500 mg tablet (Mapap 1,000 mg PO TID ##180 09/25/15 Extra Strength) clindamycin HCl 150 mg capsule 450 mg PO QID 10 days #120 caps 01/26/22 sulfamethoxazole 800 1 tab PO BID 7 days #14 tabs 03/19/22 mg-trimethoprim 160 mg tablet (Bactrim DS) Allergies Allergy/AdvReac Type Severity Reaction Status Date / Time No Known Allergies Allergy Unverified 11/24/21 20:04 General Stated Complaint: InsectBite BARNEY: 4 Review of Systems All systems reviewed & are unremarkable except as noted in HPI and below Constitutional Constitutional: Reports as per HPI, Denies chills and Denies fever(s) Eyes Eyes: Denies blurry vision ENT Ears, Nose, Mouth, and Throat: Denies dizziness, Denies sore throat and Denies throat swelling Cardiovascular Cardiovascular: Denies chest pain and Denies dyspnea Respiratory Respiratory: Denies cough and Denies dyspnea Gastrointestinal Gastrointestinal: Denies abdominal pain, Denies diarrhea and Denies vomiting Genitourinary Genitourinary: Denies hematuria and Denies dysuria Musculoskeletal Musculoskeletal: Denies back pain and Denies numbness Integumentary/Breasts Skin/Breast: Reports lesions and Denies rash Neurologic Neurologic: Denies dizziness, Denies localized weakness and Denies numbness Allergic/Immunologic Allergic/Immunologic: Denies throat swelling PFSH All Active Problems (Updated 03/19/22 @ 00:57 by Lacey Davila DO) Infected lesion of skin (Acute) Cellulitis (Acute) Septic arthritis of knee, left (Acute) Medical History No significant past medical history Surgical History Debridement of left knee (03/22/15) Dr. Rivero Social History Smoking/Tobacco Use Status: Current every day Tobacco Type: cigarettes Smoking risk assessment performed?: Yes Alcohol Intake: former Drug use: Occasionally Substance use type: marijuana, crack/cocaine and opiates Details: former user Do you feel safe at home: Yes Do you feel safe in your relationship?: Yes Exam Const General: cooperative and no acute distress Orientation: alert, awake and oriented x3 HENMT Head: normal to inspection Mouth: oral mucosae normal Eyes General: appearance normal, both eyes and all related structures Neck Neck: normal visual inspection Resp Effort & Inspection: normal respiratory effort and able to speak in complete sentences Cardio Rate: regular rate Skin Other: Multiple crusts, ranging in size from 0.5 to 1.5 cm located to the left lateral neck, right dorsal hand, who right upper back, bilateral lower extremities with areas of surrounding erythema. The bilateral lower extremities, left greater than right notes more significant surrounding erythema around lesions with mild to moderate nonpitting edema of bilateral lower extremities. There are no areas of fluctuance, drainage or bleeding. There is no crepitus. Neuro General: patient alert, patient awake and patient oriented x3 Motor: muscle tone normal throughout Extrem General: normal to inspection and full ROM Psych Appearance: grossly normal Affect: normal affect Course Vital Signs Vital signs: Vital Signs Temperature 98.2 F 03/19/22 00:12 Pulse 99 H 03/19/22 00:12 Respiratory Rate 18 03/19/22 00:12 Blood Pressure 161/87 H 03/19/22 00:12 Pulse Oximetry 97 03/19/22 00:12 Temperature 98.2 F 03/19/22 00:12 Pulse 99 H 03/19/22 00:12 Respiratory Rate 18 03/19/22 00:12 Blood Pressure 161/87 H 03/19/22 00:12 Blood Pressure Position Sitting 03/19/22 00:12 Pulse Oximetry 97 03/19/22 00:12 Oxygen Delivery Method Room Air 03/19/22 00:12 Oxygen Flow Rate 0 03/19/22 00:12 Pain Level 6 03/19/22 00:12
[2022-03-19] MEDS: Sulfameth/Trimeth DS TAB 2 TAB PO (00:46)
[2022-03-19] MEDS: Mupirocin 2% 15 GM TUBE TP (01:13)
[2022-03-19 01:17] VITALS: BP 159/88; PULSE 98; RESP 18; O2SAT 98
== END 2022-03-19 01:17 | disposition home or self-care (01) ==
PROVIDERS: Emergency Provider Physician Assistant
DX: L98.8 Other specified disorders of the skin and subcutaneous tissue (principal); L03.90 Cellulitis, unspecified
CPT/HCPCS: 99283; 99284